=== PATIENT | male | born 1955 | race Caucasian/White ===

== ENCOUNTER 2021-10-14 14:27 | Emergency (ER) | payer OTHER, SELFPAY ==
[2021-10-14 14:29] VITALS: BP 196/115; PULSE 123; RESP 18; TEMP 36.3; O2SAT 99
--- NOTE | 2021-10-14 14:45 | ECG_ITS ---
Measurements Intervals [place] Rate: 104 P: 49 IN: 135 QRS: 49 QRSD: 82 T: 40 QT: 298 QTc: 392 Interpretive Statements SINUS TACHYCARDIA NONSPECIFIC T-WAVE ABNORMALITY- INF/HIGH LAT LEADS BASELINE ARTIFACT- I, III, AVL, AVF BORDERLINE ECG Electronically Signed On 10-14-2021 17:05:28 CDT by Orlin Mcclain D.O.
--- NOTE | 2021-10-14 14:55 | ED.MALEGU ---
HPI - Male Genitourinary General Chief complaint: Urogenital-Male Stated complaint: cant urinate Time Seen by Provider: 10/14/21 14:44 History of Present Illness HPI Narrative: Patient is a 66-year-old male on the road home from [place] with history of enlarged prostate here for evaluation of urinary retention x 12 hours. Notes intermittent dribbling of urine over the past 12 hours, but has not been able to push out a full stream. He does take Flomax daily, has been told he has an enlarged prostate, but has never had a urinary catheter. Denies abdominal pain, fevers, chills, back pain. Notes he does have a history of anxiety, and feels quite worked up about his retention. Review of Systems Review of Systems: Gen.: Denies fevers or chills Eyes: Denies eye pain or visual change ENT: Denies congestion Respiratory: Denies shortness of breath or cough CV: Denies chest pain or palpitations GI: Denies abdominal pain nausea, emesis or diarrhea reports urinary retention. Denies burning, urgency, frequency or hematuria Musculoskeletal: Denies back pain or muscle pain Neuro: Denies numbness, tingling, weakness or focal weakness Skin: Denies rash Except as documented, all other systems reviewed and negative Exam Narrative: APPEARANCE: Anxious appearing. Head: Normocephalic and atraumatic. EYES: PERRLA/EOMI, conjunctivae clear NOSE: No nasal drainage EARS: External ear normal in appearance THROAT: Oropharynx is clear. Mucous membranes are moist. NECK: Supple. No adenopathy, no masses. RESPIRATORY: Airway patent, respirations nonlabored. Clear to auscultation bilaterally, no rales, rhonchi, wheezing. CARDIOVASCULAR: Regular rate and rhythm without murmurs, rubs, or gallops. ABDOMINAL: Normoactive bowel sounds. Soft, nontender, nondistended. No rebound tenderness or guarding. MUSCULOSKELETAL: Extremities are warm and well-perfused. Moves all extremities well. No edema. NEURO: Normal speech. No focal neurologic deficits. SKIN: At time of initial examination, patient had no abnormalities to skin. After fall, patient had a 1 cm superficial laceration to left forehead with no active bleeding. PSYCHIATRIC: Normal affect/mood. Course Vital Signs Vital signs: Vital Signs Temperature 97.3 F L 10/14/21 14:29 Pulse Rate 123 H 10/14/21 14:29 Respiratory Rate 18 10/14/21 14:29 Blood Pressure 196/115 H 10/14/21 14:29 Pulse Oximetry 99 10/14/21 14:29 Temperature 97.3 F L 10/14/21 14:29 Pulse Rate 88 10/14/21 16:50 Respiratory Rate 16 10/14/21 16:50 Blood Pressure 100/67 10/14/21 16:50 Pulse Oximetry 99 10/14/21 16:50 Procedures Laceration Laceration 1: Date: 10/14/21 Time: 18:30 Site: other (forehead) Size (cm): 2 Description: linear Depth: simple, single layer ====== Skin Level ====== Skin layer closed with: dermabond ====== Subcutaneous Layer ====== ====== Muscle Layer ====== ====== Tendon Layer ====== MDM - Male Genitourinary MDM Narrative Medical decision making narrative: 66-year-old male here for evaluation of urinary retention for the past 12 hours. He is initially hypertensive and tachycardic upon arrival to ED, although vitals were taken shortly after [place]a catheter was placed, which patient was very anxious about. His vital signs improved throughout his hospital stay. He had a liter of drainage from his [place] catheter, UA with red blood cells and blood but not grossly bloody. He is from out of town, does have appointment with his primary care provider on Saturday, which I encouraged him to keep for Alicea catheter follow up and urology referral for hematuria/retention. Of note, when patient was leaving the emergency department, he had syncopal episode and fell forward and struck his head on the ground, leading to a 1 cm superficial laceration on his forehead. Advised him to get blood work and a head CT, which he declined and
[2021-10-14 15:21] LABS: Appearance Urine Slightly Cloudy (Clear); Bilirubin Urine Negative (Negative); Blood Urine 3+ (Negative); Color Urine Yellow (Yellow); Glucose Urine UA Negative (Negative); Ketones Urine Trace mg/dL (Negative); Leukocyte Esterase Ur Negative LEU/UL (Negative); Nitrate Urine Negative (Negative); Protein Urine Trace mg/dL (Negative); Specific Grav Ur 1.015 (1.001-1.035); Urobilinogen Urine 0.2 mg/dL (<2.0); pH Urine 5.5 (5.0-9.0)
[2021-10-14 15:37] LABS: Bacteria Urine Trace /hpf; Mucus Urine Rare /lpf; RBC Urine >75 /hpf (0-2); WBC Urine 0-3 /hpf
[2021-10-14 15:39] LABS: Add Urine Microscopic? YES
[2021-10-14 15:51] VITALS: BP 134/99; PULSE 108; RESP 18; O2SAT 96
[2021-10-14 16:27] VITALS: BP 134/99; PULSE 92; RESP 18; O2SAT 96
[2021-10-14 16:50] VITALS: BP 100/67; PULSE 88; RESP 16; O2SAT 99
--- NOTE | 2021-10-14 17:17 | PC.NURSE ---
pt seen on his hand and knees in vestibule, forehead on carpet. pt diaphoretic, small superficial cut to left forehead pt placed in wheelchair and taken to room 3. pt refusing care, only wanting cut cleaned and wanting to leave and go home
[2021-10-14] MEDS: TETANUS,DIPHTHERIA,AC PERTUSSIS ADULT (0.5 ML) BOOSTRIX IM (17:22)
--- NOTE | 2021-10-14 17:31 | PC.NURSE ---
After pt was discharge he was waiting outside for his ride. pt states he felt like he was going to pass out so he moved inside to sit down. when pt sat on the chair he had a syncopal episode and hit his head on the rug of the floor. Security helped him into a wheelchair and was taken back to a room. pt stating he thinks he just got over heated. when explaining to pt that we will be getting a CT scan of his head and blood work pt verbalized he did not think that was necessary. TEMO June and this RN educated pt on the importance of getting blood work and imaging. pt refusing any other test to be done and states he just wants his head to be cleaned up and to leave. pt has a small laceration to the L forehead. TEMO Crocker irrigated with saline and applied skin glue. pt agree to receiving tetanus shot. pt signed AMA form and was taken to private vehicle via wheelchair.
== END 2021-10-14 17:53 | disposition left against medical advice (07) ==
PROVIDERS: Emergency Provider Emergency Medicine
DX: N40.1 Benign prostatic hyperplasia with lower urinary tract symptoms (principal); R33.8 Other retention of urine; S01.81XA Laceration without foreign body of other part of head, initial encounter; R55 Syncope and collapse; Z23 Encounter for immunization; R00.0 Tachycardia, unspecified; R94.31 Abnormal electrocardiogram [ECG] [EKG]; W18.39XA Other fall on same level, initial encounter
CPT/HCPCS: 12011; 51702; 81001; 90471; 90715; 93005; 99283